=== PATIENT | female | born 1955 | race Caucasian/White ===

== ENCOUNTER 2019-04-11 17:34 | Emergency (ER) | payer MEDICARE, OTHER ==
[~2019-04-11] VITALS: Ht 160 cm; Wt 68.9 kg
--- NOTE | 2019-04-11 17:55 | NUR ---
PT [id number] FRM WORK, DIZZINESS, ABDOMINAL CRAMPING W/ N/V/D SINCE 1529, PT IS AAOX4, NOT IN RESPIRATORY DISTRESS, HOOKED TO MONITOR, KEPT RESTED AND COMFORTABLE, WILL CONTINUE TO MONITOR. Addendum: 04/11/19 at 1923 by ELIAS Patient does not wish to proceed with medical care recommended by Dr. Saldaña. Patient given information related to possible complications, up to and including , which could occur as a result of leaving the hospital at this time. Patient verbalizes understanding of risks involved due to leaving against medical advice. Patient has signed AMA form.
--- NOTE | 2019-04-11 18:03 | NUR ---
SEEN AND EXAMINED BY .
--- NOTE | 2019-04-11 18:18 | NUR ---
PT REFUSED IV LINE AND BLOOD DRAW. AWARE.
[2019-04-11] MEDS ORDERED: MAG HYDROX/AL HYDROX/SIMETH 30 ML UDC ONE (18:19)
[2019-04-11] MEDS ORDERED: MAG HYDROX/AL HYDROX/SIMETH 30 ML UDC PO ONE (18:30)
[2019-04-11] MEDS ORDERED: KETOROLAC TROMETHAMINE INJ 30 MG/ML VIAL IV ONE (18:30)
[2019-04-11] MEDS ORDERED: ONDANSETRON HCL/PF 4 MG/2 ML VIAL IVP ONE (18:30)
[2019-04-11] MEDS ORDERED: IV NS 0.9% 1,000 ML BAG IV ONE (18:30)
[2019-04-11] MEDS ORDERED: ASPIRIN 325 MG TABLET ONE (18:31)
[2019-04-11] MEDS ORDERED: NITROGLYCERIN 0.4 MG/TAB BOTTLE ONE (18:31)
[2019-04-11 19:24] VITALS: BP 123/66
--- NOTE | 2019-04-11 19:24 | NUR ---
Patient does not wish to proceed with medical care recommended by Dr. ferraro. Patient given information related to possible complications, up to and including , which could occur as a result of leaving the hospital at this time. Patient verbalizes understanding of risks involved due to leaving against medical advice. Patient has signed AMA form.
== END 2019-04-11 19:26 | disposition left against medical advice (07) ==
LOC: ER 17:47
DX: R10.9 Unspecified abdominal pain (principal); R11.2 Nausea with vomiting, unspecified; R19.7 Diarrhea, unspecified; R42 Dizziness and giddiness; Z98.890 Other specified postprocedural states

== ENCOUNTER 2024-10-16 17:51 | Emergency (ER) | payer MEDICARE, OTHER ==
[~2024-10-16] VITALS: Ht 160 cm; Wt 68.9 kg
[2024-10-16] MEDS ORDERED: KETOROLAC TROMETHAMINE 15 MG/ML VIAL ONE (18:08)
[2024-10-16] MEDS ORDERED: ONDANSETRON HCL/PF 4 MG/2 ML VIAL ONE ×3 (18:08→20:53)
[2024-10-16] MEDS ORDERED: MORPHINE SULFATE INJ 4 MG/ML DISP.SYRIN ONE (18:09)
[2024-10-16] MEDS: IV NS 0.9% 1,000 ML BAG IV ONE ×2 (18:18→19:35)
[2024-10-16] MEDS: KETOROLAC TROMETHAMINE 15 MG/ML VIAL IV ONE (18:19)
[2024-10-16] MEDS: MORPHINE SULFATE INJ 2 MG/ML DISP.SYRIN IV ONE (18:19)
[2024-10-16 18:20] LABS: BASOPHILS # (AUTO) 0.1 K/uL (0.0-0.2); BASOPHILS % (AUTO) 0.9 % (0.0-2.0); EOSINOPHILS # (AUTO) 0.1 K/uL (0.0-0.7); EOSINOPHILS % (AUTO) 1.2 % (0.0-6.0); HEMATOCRIT 41 % (33-45); HEMOGLOBIN 13.6 g/dL (11.5-14.8); LYMPHOCYTES # (AUTO) 3.6 K/uL (0.8-4.8); LYMPHOCYTES % (AUTO) 39.2 % (20.0-44.0); MEAN CORPUSCULAR HEMOGLOBIN 29 PG (26.0-33.0); MEAN CORPUSCULAR HGB CONC 34 g/dl (31.0-36.0); MEAN CORPUSCULAR VOLUME 87 fL (82-100); MONOCYTES # (AUTO) 0.6 K/uL (0.1-1.30); MONOCYTES % (AUTO) 6.8 % (2.0-12.0); NEUTROPHILS # (AUTO) 4.8 K/uL (1.8-8.9); NEUTROPHILS % (AUTO) 51.9 % (43.0-81.0); PLATELET COUNT (AUTO) 318 K/uL (150-450); RED BLOOD CELL COUNT(AUTO) 4.68 MIL/uL (4.0-5.2); RED CELL DISTRIBUTION WIDTH 14.2 % (11.5-15.0); WHITE BLOOD COUNT (AUTO) 9.2 K/uL (4.3-11.0)
[2024-10-16] MEDS: ONDANSETRON HCL/PF 4 MG/2 ML VIAL IVP ONE ×3 (18:20→20:58)
[2024-10-16 18:28] LABS: CALCIUM, SERUM 9.4 mg/dL (8.5-10.1); POTASSIUM 3.4 mmol/L (3.5-5.1)
[2024-10-16 18:33] LABS: BILIRUBIN,DIRECT 0.1 mg/dL (0.0-0.2); BILIRUBIN,TOTAL 0.5 mg/dL (0.2-1.0); TOTAL PROTEIN, SERUM 7.4 g/dL (6.4-8.2)
[2024-10-16 18:36] LABS: LACTIC ACID 1.7 mmol/L (0.4-2.0)
[2024-10-16] MEDS ORDERED: HYDROMORPHONE 1 MG/1 ML DISP.SYRIN ONE (18:46)
[2024-10-16] MEDS: HYDROMORPHONE 1 MG/1 ML DISP.SYRIN IV ONE (18:50)
[2024-10-16] MEDS ORDERED: TAMSULOSIN 0.4 MG CAP.SR.24H ONE (19:27)
[2024-10-16] MEDS: TAMSULOSIN 0.4 MG CAP.SR.24H PO ONE (19:35)
[2024-10-16 20:00] LABS: APPEARANCE,URINE Turbid (CLEAR); BILIRUBIN,URINE SMALL (NEGATIVE); BLOOD, URINE Large Ery/uL (NEGATIVE); COLOR,URINE AMBER (YELLOW); KETONES,URINE 15 mg/dL (NEGATIVE); LEUKOCYTE ESTERASE ,URINE Negative (NEGATIVE); NITRITE, URINE Negative (NEGATIVE); PH,URINE 6.5 (5.0-8.0); PROTEIN,URINE >=300 mg/dl (NEGATIVE); UGLUCOSE Negative (NEGATIVE); UROBILINOGEN,URINE 0.2 EU/dL (0.2)
[2024-10-16 20:17] LABS: ADD URINE CULTURE NO; BACTERIA,URINE Few /HPF (None Seen); RBC,URINE TOO NUMEROUS TO COUN /HPF (0-2); SQUAMOUS EPITHELIAL CELL,UR Few /HPF (None Seen)
[2024-10-16 20:18] LABS: MUCUS,URINE Few /LPF (None Seen)
[2024-10-16 20:23] LABS: HYALINE CASTS, URINE Rare /LPF (None Seen)
[2024-10-16] MEDS ORDERED: IBUP-1490 PO (20:25)
[2024-10-16] MEDS ORDERED: TAMS-12 PO (20:25)
[2024-10-16] MEDS ORDERED: ONDA4TAB5 PO (20:25)
[2024-10-16] MEDS ORDERED: HYDR-3972 PO (20:25)
[2024-10-16 21:34] VITALS: BP 168/80; TEMP 97.7; O2SAT 98
== END 2024-10-16 21:47 | disposition home or self-care (01) ==
LOC: ER 17:55
DX: N23 Unspecified renal colic (principal); N20.1 Calculus of ureter; R11.2 Nausea with vomiting, unspecified; R42 Dizziness and giddiness
CPT/HCPCS: 99284; 74176; 96374; 96375; 71045; 96361; 93005; 96376; 85025; 80048; 87040 ×2; 83605; 83690; 80076; 81001; 36415; J1885; J1171; J2270; J2405 ×3; J7030 ×2